=== PATIENT | female | born 1990 | race Two or more races ===

== ENCOUNTER → 2017-04-26 | Outpatient (CLI) | payer OTHER ==
--- NOTE | ~2017-04-26 | CR281 ---
[facility] A Service of [facility] & [facility] RADIOLOGY TEXT RESULTS PATIENT: ANDERSON SARMIENTO LOCATION: [facility] : [birth year] UNIT #: [id number] AGE: [address]: TAWANA ANAND APRN SEX: F ORDER DR: [id number] [facility] [address] [place], [place] [address] [id number] O MR#: [id number] Acc #: [id number] NAME: ANDERSON SARMIENTO : 1990 SEX: F STUDY DATE/TIME: 04/26/2017 12:03 UNIT: [facility] ROOM: STUDY DESCRIPTION: CR Wrist Min 3 View Lt Attending Physician: Mary Beth Anand M.D. Referring Physician: Mary Beth Anand M.D. Ordering Physician: Mary Beth Anand M.D. Primary Care Physician: Wally Campos M.D. MEDICAL IMAGING REPORT This report is preliminary unless electronic signature is present EXAM Left wrist 3 views, 04/26/2017 HISTORY Left wrist pain with palpable lump radial side of left wrist for 2 weeks. No known injury. FINDINGS Wrist evaluation in multiple projections shows normal mineralization of the bony structures about the wrist and satisfactory articular relationship of the radius and ulna to the proximal carpal row and of the distal carpal segments to the metacarpal bases. There is no indication of fracture or dislocation, and no soft tissue radiopaque foreign body is present. No congenital defects are apparent. IMPRESSION Normal wrist. Dictated by... Phillip Cavanaugh M.D. THIS IS AN ELECTRONICALLY VERIFIED REPORT Phillip Cavanaugh M.D. at 04/27/2017 7:33 AM RICK/juanito TD: 04/27/2017 01:42 JOB #: [id number] MEDICAL IMAGING REPORT Page 1 of 1 COPY
--- NOTE | ~2017-04-26 | CR132 ---
[facility] A Service of [facility] RADIOLOGY TEXT RESULTS PATIENT: ANDERSON SARMIENTO LOCATION: [facility] : 86 UNIT #: [id number] AGE: [address]: ANGELA ANAND APRN SEX: F ORDER DR: [id number] [facility] [address] [place], [place] [address] [id number] O MR#: [id number] Acc #: [id number] NAME: ANDERSON SARMIENTO : 1990 SEX: F STUDY DATE/TIME: 04/26/2017 12:03 UNIT: [facility] ROOM: STUDY DESCRIPTION: CR Forearm 2 View Lt Attending Physician: Angela Anand Referring Physician: Angela Anand Ordering Physician: Mary Beth Anand M.D. Primary Care Physician: Wally Campos M.D. MEDICAL IMAGING REPORT This report is preliminary unless electronic signature is present EXAM Left forearm 2 views, 04/26/2017 HISTORY Left forearm pain and palpable lump radial side of wrist for 2 weeks. No known injury. FINDINGS AP and lateral views of the forearm show no evidence of fracture or destructive bone lesion. No periosteal elevation is seen. No radiodense foreign bodies are noted. Adjacent soft tissue structures are normal. IMPRESSION Normal forearm. Dictated by... Phillip Cavanaugh M.D. THIS IS AN ELECTRONICALLY VERIFIED REPORT Phillip Cavanaugh M.D. at 04/27/2017 7:33 AM Dagmar TD: 04/27/2017 00:56 JOB #: [id number] MEDICAL IMAGING REPORT Page 1 of 1 COPY
== END | disposition home or self-care (01) ==
LOC: CRAD 11:53
DX: R22.32 Localized swelling, mass and lump, left upper limb (principal)
CPT/HCPCS: 73090; 73110